=== PATIENT | female | born 1995 | race Caucasian/White ===

== ENCOUNTER 2024-05-05 17:07 | Emergency (ER) | payer OTHER ==
[2024-05-05 17:13] VITALS: BP 105/77; PULSE 86; RESP 18; TEMP 97; BMI 24.9
[2024-05-05] MEDS ORDERED: ACETAMINOPHEN 500 MG TABLET (FP) ONE (18:18)
[2024-05-05] MEDS: ACETAMINOPHEN 500 MG TABLET (FP) PO ONE (18:20)
== END 2024-05-05 18:54 | disposition home or self-care (01) ==
LOC: JER 17:07
DX: S09.90XA Unspecified injury of head, initial encounter (principal); W01.0XXA Fall on same level from slipping, tripping and stumbling without subsequent striking against object, initial encounter; Y92.520 Airport as the place of occurrence of the external cause
CPT/HCPCS: 99283-25